=== PATIENT | male | born 1950 | race Caucasian/White ===

== ENCOUNTER 2017-01-21 03:37 | Inpatient (IN) | payer OTHER, MEDICARE ==
[2017-01-21] VITALS (7 sets, daily range): BP systolic 113–140; BP diastolic 78–89
[~2017-01-21] VITALS: Ht 188 cm; Wt 86.4 kg
[2017-01-21] MEDS ORDERED: DILTIAZEM 125 MG in DEXTROSE 5% 100 ML IV SCH (04:29)
[2017-01-21] MEDS ORDERED: DILTIAZEM 5 MG/ML, 5ML IV ONE (04:30)
[2017-01-21] MEDS ORDERED: METO25TA35 PO (04:33)
[2017-01-21] MEDS ORDERED: ALPR2TAB2 PO (04:33)
[2017-01-21] MEDS ORDERED: ASPI-650 PO (04:33)
[2017-01-21] MEDS ORDERED: DILTIAZEM 5 MG/ML, 5ML ONE ×2 (04:37→12:55)
[2017-01-21 05:35] LABS: HEMOGLOBIN 14.8 g/dL (13.7-18.0)
[2017-01-21 05:44] LABS: BLOOD UREA NITROGEN 22 mg/dL (7-18)
[2017-01-21 05:48] LABS: IS PT STATUS REG ER OR PRE ER? YES
[2017-01-21] MEDS: SODIUM CHLORIDE 0.9% 1,000 ML IV SCH ×2 (07:26→18:00)
[2017-01-21] MEDS ORDERED: morphine SULFATE 10 MG/ML, 1ML IVPush PRN (07:30)
[2017-01-21] MEDS ORDERED: ENALAPRILAT 1.25 MG/ML, 2ML IVPush PRN (07:30)
[2017-01-21] MEDS: METOPROLOL SUCCINATE 25 MG TAB.ER.24H PO SCH (07:30)
[2017-01-21] MEDS ORDERED: TEMAZEPAM 15 MG CAPSULE PO PRN (07:30)
[2017-01-21] MEDS ORDERED: ACETAMINOPHEN 325 MG TABLET PO PRN (07:30)
[2017-01-21] MEDS ORDERED: HYDROcodone/APAP 5/325 TABLET PO PRN (07:30)
[2017-01-21] MEDS ORDERED: ONDANSETRON 2MG/ML, 2ML IVP PRN (07:30)
[2017-01-21] MEDS ORDERED: POTASSIUM CHLORIDE 20 MEQ TAB.ER.PRT PO ONE (08:00)
[2017-01-21] MEDS ORDERED: POTASSIUM CHLORIDE 20 MEQ TAB.ER.PRT ONE (08:19)
[2017-01-21] MEDS ORDERED: DILTIAZEM 30 MG TABLET PO SCH ×3 (08:30→14:30)
[2017-01-21] MEDS: POTASSIUM CHLORIDE 20 MEQ TAB.ER.PRT PO SCH ×2 (09:00→11:43)
[2017-01-21] MEDS: PANTOPRAZOLE 20MG TABLET PO SCH ×2 (09:40→20:16)
[2017-01-21] MEDS: ENOXAPARIN 40 MG/0.4 ML SQ SCH (09:40)
[2017-01-21] MEDS: ASPIRIN 325 MG TABLET EC PO SCH (09:40)
[2017-01-21] MEDS ORDERED: DILTIAZEM 5 MG/ML, 5ML IVPush ONE (13:00)
[2017-01-21] MEDS ORDERED: ALPR-475 PO (17:02)
[2017-01-21] MEDS: ALPRazolam 1MG TABLET PO SCH (20:16)
[2017-01-21] MEDS: DILTIAZEM 90 MG TABLET PO SCH (20:16)
[2017-01-22 02:00] VITALS: BP 116/75
[2017-01-22] MEDS: DILTIAZEM 90 MG TABLET PO SCH (02:25)
[2017-01-22] MEDS: SODIUM CHLORIDE 0.9% 1,000 ML IV SCH ×2 (02:26→08:41)
[2017-01-22] MEDS: METOPROLOL SUCCINATE 25 MG TAB.ER.24H PO SCH (05:19)
[2017-01-22 05:54] LABS: HEMOGLOBIN 13.2 g/dL (13.7-18.0)
[2017-01-22 06:23] LABS: ASPARTATE AMINO TRANSFERASE 17 U/L (15-37); BLOOD UREA NITROGEN 11 mg/dL (7-18)
[2017-01-22 07:10] VITALS: BP 119/77
[2017-01-22] MEDS: ASPIRIN 325 MG TABLET EC PO SCH (08:40)
[2017-01-22] MEDS: PANTOPRAZOLE 20MG TABLET PO SCH (08:41)
[2017-01-22] MEDS: ALPRazolam 1MG TABLET PO SCH (08:41)
[2017-01-22] MEDS: ENOXAPARIN 40 MG/0.4 ML SQ SCH (08:41)
[2017-01-22] MEDS ORDERED: NEUTRA PHOS K 250 MG TABLET PO SCH (09:00)
[2017-01-22] MEDS ORDERED: APIXABAN 5 MG TABLET PO SCH (10:00)
[2017-01-22] MEDS ORDERED: METO25TA91 PO (13:46)
[2017-01-22] MEDS ORDERED: APIX5TAB PO (13:46)
[2017-01-22 14:06] VITALS: BP 127/79
[2017-01-22] MEDS ORDERED: METOPROLOL SUCCINATE 25 MG TAB.ER.24H PO SCH (21:00)
== END 2017-01-22 16:20 | disposition home or self-care (01) | DRG 309 ==
LOC: ED 05:13 → EDIP 06:16 → 4WST 08:40
PROVIDERS: ADMIT Internal Medicine; ATTEND Internal Medicine
PROC: 5A2204Z Restoration of Cardiac Rhythm, Single (ICD-10-PCS; principal; 2017-01-22)
DX: I48.0 Paroxysmal atrial fibrillation (principal); D68.69 Other thrombophilia; F13.20 Sedative, hypnotic or anxiolytic dependence, uncomplicated; I50.30 Unspecified diastolic (congestive) heart failure; E87.6 Hypokalemia; K21.9 Gastro-esophageal reflux disease without esophagitis; F41.9 Anxiety disorder, unspecified; Z79.01 Long term (current) use of anticoagulants
CPT/HCPCS: 36415; 71010; 74020; 80048; 80053; 81003; 82040; 83735; 84100; 84436; 84443; 84484; 85025; 93005; 93306; 96365; 96366; 96375; J1650; J7030

== ENCOUNTER → 2017-11-18 | Outpatient (CLI) | payer OTHER, MEDICARE ==
[~2017-11-18] MED LIST: ALPR-475 PO; ALPR2TAB2 PO; APIX5TAB PO; ASPI-650 PO; METO25TA35 PO; METO25TA91 PO
[2017-11-18 12:39] LABS: ALANINE AMINOTRANSFERASE 19 U/L (12-78); ALBUMIN 3.9 g/dL (3.4-5.0); ANION GAP 6 mmol/L (5-15); CALCIUM 9.1 mg/dL (8.5-10.1); CHLORIDE 106 mmol/L (98-107); CHOLESTEROL, TOTAL 223 mg/dL (140-239); CREATININE 1.07 mg/dL (0.7-1.3)
[2017-11-18 12:41] LABS: ALKALINE PHOSPHATASE 93 U/L (45-117); BILIRUBIN,TOTAL 0.5 mg/dL (0.2-1.0); HDL CHOL % 20 % (26-37); HDL CHOLESTEROL (DIRECT) 45 mg/dL (40-60); LDL CHOLESTEROL,CALCULATED 124 mg/dL (54-169); LDL/HDL RATIO 2.8 (0.5-3.0); TOTAL PROTEIN 7.9 g/dL (6.4-8.2); TRIGLYCERIDES 269 mg/dL (50-200); VLDL CHOLESTEROL 54 mg/dL (0-25)
== END ==
LOC: LAB 12:15
PROVIDERS: ATTEND Internal Medicine Cardiovascular Disease
DX: I10 Essential (primary) hypertension (principal); E78.00 Pure hypercholesterolemia, unspecified
CPT/HCPCS: 36415; 80053; 80061

== ENCOUNTER → 2019-03-22 | Outpatient (CLI) | payer OTHER, MEDICARE ==
[2019-03-22 12:26] LABS: ALANINE AMINOTRANSFERASE 24 U/L (12-78); ALBUMIN 3.7 g/dL (3.4-5.0); ANION GAP 4 mmol/L (5-15); CALCIUM 8.8 mg/dL (8.5-10.1); CHLORIDE 110 mmol/L (98-107); CREATININE 0.98 mg/dL (0.7-1.3)
[2019-03-22 12:31] LABS: ALKALINE PHOSPHATASE 76 U/L (45-117); BILIRUBIN,TOTAL 0.5 mg/dL (0.2-1.0); CHOLESTEROL, TOTAL 222 mg/dL (140-239); HDL CHOL % 20 % (26-37); HDL CHOLESTEROL (DIRECT) 44 mg/dL (40-60); LDL CHOLESTEROL,CALCULATED 134 mg/dL (54-169); TOTAL PROTEIN 7.1 g/dL (6.4-8.2); TRIGLYCERIDES 220 mg/dL (50-200); VLDL CHOLESTEROL 44 mg/dL (0-25)
== END | disposition home or self-care (01) ==
LOC: LAB 11:50
PROVIDERS: ATTEND Internal Medicine Cardiovascular Disease
DX: I48.0 Paroxysmal atrial fibrillation (principal); G43.809 Other migraine, not intractable, without status migrainosus; F41.1 Generalized anxiety disorder; N52.8 Other male erectile dysfunction
CPT/HCPCS: 36415; 80053; 80061; 84153

== ENCOUNTER 2020-01-15 11:18 | Emergency (ER) | payer OTHER ==
[~2020-01-15] VITALS: Ht 188 cm; Wt 92.3 kg
[~2020-01-15 11:18] MED LIST changes: -ALPR-475 PO; +ALPR0.5T7 PO
[2020-01-15 12:13] LABS: BASOPHILS # (AUTO) 0.01 x10^3/uL (0-0.1); BASOPHILS % (AUTO) 0 % (0-1); EOSINOPHILS # (AUTO) 0.02 x10^3/uL (0-0.4); EOSINOPHILS % (AUTO) 0 % (1-7); LYMPHOCYTES % (AUTO) 21 % (22-44); MD NO; MEAN CORPUSCULAR HEMOGLOBIN 33.5 pg (27.5-34.5); MEAN CORPUSCULAR HGB CONC 33.9 g/dL (33.2-36.2); MEAN CORPUSCULAR VOLUME 98.9 fL (81-97); MEAN PLATELET VOLUME 7.3 fL (7.4-10.4); MONOCYTES # (AUTO) 0.38 x10^3/uL (0.2-0.8); MONOCYTES % (AUTO) 7 % (2-9); NEUTROPHILS # (AUTO) 4.21 x10^3/uL (1.8-6.8); NEUTROPHILS % (AUTO) 72 % (42-75); PLATELET COUNT 260 x10^3/uL (130-400); RED BLOOD COUNT 4.35 x10^6/uL (4.38-5.82); RED CELL DISTRIBUTION WIDTH 13.3 % (9.4-14.8)
--- NOTE | 2020-01-15 12:18 | NUR ---
PT TO ROOM FROM LOBBY AT THIS TIME.
[2020-01-15 12:21] LABS: ALBUMIN 4.1 g/dL (3.4-5.0); ANION GAP 8 mmol/L (5-15); CALCIUM 9.8 mg/dL (8.5-10.1); CHLORIDE 104 mmol/L (98-107)
[2020-01-15 12:23] LABS: CREATININE 1.02 mg/dL (0.7-1.3)
--- NOTE | 2020-01-15 12:46 | NUR ---
69 Y/O MALE PRESENTS TO ED WITH C/O HTN. PER PT "I TOOK MY BP THIS MORNING AND IT WAS 180/100. I FELT A HEADACHE THEN. RIGHT NOW I DON'T REALLY HAVE ONE. I DON'T HAVE ANY CHEST PAIN." NADN. 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 FAMILY BESIDE. NO C/O N/V/D, TRAUMA, SYNCOPE, CP, SOB.
[2020-01-15] MEDS ORDERED: ATOR10TA9 PO (14:19)
[2020-01-15] MEDS ORDERED: LIPITOR PO (14:19)
[2020-01-15] MEDS ORDERED: TADA5TAB2 PO (14:21)
[2020-01-15] MEDS ORDERED: MINOXIDIL (14:21)
--- NOTE | 2020-01-15 14:21 | NUR ---
TASK RN: FIRST CONTACT WITH PT. Pt resting on gurney connected to NIBP cuff, continous pulse ox monitor, and quality assurance monitor chassis. Call light within reach. NADN. No needs expressed at this time. ED MD at bedside.
[2020-01-15 14:48] VITALS: BP 156/75
--- NOTE | 2020-01-15 14:56 | NUR ---
Patient/Caregiver given discharge instructions and they have confirmed that they understand the instructions. Patient ambulatory with steady gait. pt left with all personal belongings.
== END 2020-01-15 14:58 | disposition home or self-care (01) ==
LOC: ED 14:45
DX: R55 Syncope and collapse (principal); R42 Dizziness and giddiness; R09.89 Other specified symptoms and signs involving the circulatory and respiratory systems; E78.00 Pure hypercholesterolemia, unspecified; I48.91 Unspecified atrial fibrillation
CPT/HCPCS: 36415; 71046; 80048; 82040; 85025; 93005; 99285